=== PATIENT | female | born 1965 | race Caucasian/White ===

== ENCOUNTER 2019-09-24 20:03 | Emergency (ER) | payer BC ==
[2019-09-24] MEDS ORDERED: 0.9 % SODIUM CHLORIDE 1,000 ML BAG IV ONE (20:25)
[2019-09-24] MEDS ORDERED: ACETAMINOPHEN 1,000 MG/100 ML BTL IVPB ONE (20:25)
--- NOTE | 2019-09-24 20:31 | Emergency Department Record ---
History of Present Illness - General Chief Complaint: Cough Stated Complaint: COUGHING UP BLOOD Time Seen by Provider: 09/24/19 20:21 Source: Patient Mode of Arrival: Ambulatory Limitations: No limitations - History of Present Illness Initial Comments: 54 yo female presents with cough, sputum, epistaxis, fevers, chills, blood in sputum, and weakness. She states she initially developed cough and fevers about 6 weeks ago. She was treated by Shikha Moore her PCP. She was given a breathing treatment and ZPack. She states she improved for a while then the cough returned. Her daughter was also sick the second time the cough developed. The last two days she has been having blooding noses. She has also coughed up some blood with her sputum. Her Tmax was 103. She is a smoker. 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 MD Complaint: Cough, Fever, Nasal congestion, Other -: Week(s) Severity: Moderate Quality: Aching (hurts to cough) Consistency: Constant Improves With: Nothing Worsens With: Other (coughing) Context: Sick contacts Associated Symptoms: Chest pain (with cough), Chills, Cough, Epistaxis, Fever, Nasal congestion, Shortness of breath Treatments Prior to Arrival: Acetaminophen - Related Data Previous Rx's Medication Instructions Recorded Azithromycin [Zithromax] 250 mg PO DAILY #4 tab 09/24/19 Levofloxacin [Levaquin] 750 mg PO DAILY #6 tab 09/24/19 Allergies Allergy/AdvReac Type Severity Reaction Status Date / Time peanut Allergy Severe ANAPHYLAXIS Unverified 09/24/19 20:56 Penicillins Allergy Severe ANAPHYLAXIS Unverified 09/24/19 20:56 tree nut Allergy Severe ANAPHYLAXIS Unverified 09/24/19 20:56 egg AdvReac Mild HIVES Unverified 09/24/19 20:56 Travel/Exposure Screening - Travel/Exposure Within Last 30 Days Have you traveled within the last 30 days?: No - Additonal Travel/Exposure Details Have you been exposed to anyone with a communicable illness?: No - Travel Symptoms Symptom Screening: Fever (Subjective), Cough Review of Systems Constitutional: Reports: Chills, Fever, Malaise, Weakness Eyes: Denies: Eye discharge, Eye pain, Photophobia, Vision change ENT: Reports: Congestion, Epistaxis. Denies: Throat pain Respiratory: Reports: Cough Cardiovascular: Reports: Chest pain (with cough it hurts). Denies: Edema Endocrine: Reports: Fatigue Gastrointestinal: Denies: Abdominal pain, Diarrhea, Nausea, Vomiting Genitourinary: Denies: Dysuria, Urgency Musculoskeletal: Denies: Arthralgia, Back pain, Myalgia, Neck pain Skin: Denies: Bruising, Change in color, Rash Neurological: Denies: Headache, Numbness, Weakness Psychiatric: Denies: Anxiety Hematological/Lymphatic: Denies: Easy bleeding, Easy bruising Past Medical History - SOCIAL HISTORY Smoking Status: Heavy tobacco smoker (>10/day) - RESPIRATORY Hx Respiratory Disorders: Yes Hx Bronchitis: Yes - CARDIOVASCULAR Hx Cardio Disorders: Yes Hx Hypertension: Yes - NEURO Hx Neuro Disorders: No - GI Hx GI Disorders: No - Hx Genitourinary Disorders: No - ENDOCRINE Hx Endocrine Disorders: No - MUSCULOSKELETAL Hx Musculoskeletal Disorders: No - PSYCH Hx Psych Problems: No - HEMATOLOGY/ONCOLOGY Hx Hematology/Oncology Disorders: No Family Medical History Any Significant Family History?: No Physical Exam - General General Appearance: Alert, Oriented x3, Cooperative, No acute distress Limitations: No limitations - Head Head exam: Atraumatic, Normal inspection - Eye Eye exam: Normal appearance, PERRL. negative: Conjunctival injection, Scleral icterus - ENT ENT exam: Normal exam, Mucous membranes moist Ear exam: Normal external inspection Nasal Exam: Dried blood Mouth exam: Normal external inspection Teeth exam: Normal inspection Throat exam: Normal inspection. negative: Tonsillar erythema, Tonsillomegaly, Tonsillar exudate, R peritonsillar mass, L peritonsillar mass - Neck Neck exam: Full ROM. negative: Lymphadenopathy, Tenderness - Respiratory Respiratory exam: Decreased breath sounds, Rhonchi (few scattered). negative: Normal lung sounds bilaterally, Prolonged expiratory, Wheezes - Cardiovascular Cardiovascular Exam: Normal rhythm, Normal heart sounds, Tachycardia - GI/Abdominal GI/Abdominal exam: Soft. negative: Tenderness - Rectal Rectal exam: Deferred - exam: Deferred - Extremities Extremities exam: Normal inspection. negative: Tenderness - Back Back exam: Denies: CVA tenderness (R), CVA tenderness (L) - Neurological Neurological exam: Alert, Oriented X3 - Psychiatric Psychiatric exam: Normal affect, Normal mood - Skin Skin exam: Dry, Intact, Normal color, Warm Course Vital Signs 09/24/19 20:18 Temperature 98.6 F Pulse Rate 117 H Respiratory 24 Rate Blood Pressure 113/74 Pulse Ox 94 L - Reevaluation(s) Reevaluation #1: 09/24/19 20:51 The CBC was reviewed The WBC is 12 09/24/19 21:09 The CMP was reviewed No acute process The CXR demonstrates a lingular infiltrate consistent with pneumonia 09/24/19 21:14 I discussed the findings with the patient. Her presentation is consistent with an infection and is consistent with the pneumonia on the CXR. She is feeling better with the IVF. Her HR is 92. She is not short of breath or vomiting. She will be given oral antibiotics and rechecked. She is 96% on room air. I do not think she has a PE. The sputum has been green. The blood is more likely from her epistaxis than an PE. She did take Zithromax 6 weeks ago with im provement. She is anaphylaxic to PCN. She will be given Levaquin and Zithromax at this time. She is very comfortable with DC. We discussed at length the importance of follow up and returning if not improving or immediately if worse. 09/24/19 21:43 At the time of DC I checked the patient one more time. She is doing well. She is comfortable with DC, she is aware she can return anytime and will call Shikha Moore for follow up Medical Decision Making - Lab Data Result diagrams: 09/24/19 20:35 09/24/19 20:35 Disposition Disposition: Discharge Clinical Impression: Pneumonia Qualifiers: Pneumonia type: due to unspecified organism Laterality: unspecified laterality Lung location: unspecified part of lung Qualified Code(s): J18.9 - Pneumonia, unspecified organism Condition: (1) Good Instructions: Community Acquired Pneumonia (ED) Additional Instructions: Review this ER visit and the tests performed with your family doctor Call your doctor for the next available follow up appointment Return to the ER for a recheck immediately if worse, any new concerns or questions Take the prescriptions provided as directed Prescriptions: Levofloxacin [Levaquin] 750 mg PO DAILY #6 tab Azithromycin [Zithromax] 250 mg PO DAILY #4 tab Forms: Patient Portal Access Time of Disposition: 21:21 Quality - Quality Measures Quality Measures: N/A - Blood Pressure Screening Does Patient Have Any of the Following: No Blood Pressure Classification: Normal BP Reading Systolic Measurement: 113 Diastolic Measurement: 74 Screening for High Blood Pressure: < Normal BP, F/U Not Required > [[id number]]
[2019-09-24 20:43] LABS: ABSOLUTE NEUTROPHIL COUNT 9.74; BASO % 0.2 % (0-6); EOS % 0.1 % (0-6); HEMATOCRIT 44.1 % (35.0-47.0); HEMOGLOBIN 14.7 gm/dl (11.6-16.0); LYMPH % 13.4 % (16-45); MEAN CELL VOLUME 92.6 fl (81-97); MEAN CORPUSCULAR HEMOGLOBIN 30.9 pg (27-33); MEAN CORPUSCULAR HGB CONC 33.3 g/dl (32-36); MEAN PLATELET VOLUME 9.9 fl (7.4-10.4); MONO % 9.3 % (0-9); PLATELET COUNT 321 K/uL (130-400); RED BLOOD COUNT 4.76 M/uL (3.80-5.40); RED CELL DISTRIBUTION WIDTH 14.4 % (11.5-14.5); WHITE BLOOD COUNT W/O DIFF 12.7 K/uL (4.2-12.2)
[2019-09-24 20:45] LABS: INFLUENZA A NEGATIVE (NEGATIVE); INFLUENZA B NEGATIVE (NEGATIVE)
--- NOTE | 2019-09-24 20:57 | RADIOLOGY REPORT ---
EXAMINATION: Two View Chest Radiographs EXAM DATE: 09/24/2019 8:53 PM TECHNIQUE: Frontal and lateral views INDICATION: cough, sputum, streaks of blood COMPARISON: None ENCOUNTER: Not applicable FINDINGS: Cardiomediastinal structures stable. Lingular infiltrate. No pulmonary consolidation. No pneumothorax or pleural effusion. IMPRESSION: Lingular infiltrate Dictated by: Bari Garvin MD on 09/24/2019 8:55 PM. .
[2019-09-24 20:58] LABS: BLOOD UREA NITROGEN 10 mg/dL (6-20); CREATININE 0.8 mg/dL (0.5-0.9); EST GLOMERULAR FILTRATION RATE > 60 mL/min; TOTAL PROTEIN 7.7 g/dL (6.6-8.7)
[2019-09-24 21:01] LABS: GLUCOSE,RANDOM 108 mg/dL (74-109)
[2019-09-24 21:03] LABS: ALB/GLOB RATIO 1.1 (1.1-1.8); ALKALINE PHOSPHATASE 117 U/L (35-104); ALT/SGPT 28 U/L (<33); AST/SGOT 23 U/L (10.0-35.0)
[2019-09-24] MEDS ORDERED: AZITHROMYCIN 500 MG TABLET PO ONE (21:13)
[2019-09-24] MEDS ORDERED: LEVOFLOXACIN 500 MG TABLET PO ONE (21:13)
== END 2019-09-24 21:48 | disposition home or self-care (01) ==
LOC: ER 20:03
DX: J18.9 Pneumonia, unspecified organism (principal); I10 Essential (primary) hypertension; F17.210 Nicotine dependence, cigarettes, uncomplicated; R04.0 Epistaxis
CPT/HCPCS: 71046; 80053; 85025; 87400; 96365; 99284; J7030